=== PATIENT | male | born 1950 | race African-American/Black ===

== ENCOUNTER 2017-04-14 19:12 | Emergency (ER) | payer OTHER ==
[~2017-04-14] VITALS: Ht 172.7 cm; Wt 49.9 kg
[2017-04-14 19:17] VITALS: BP 128/99
== END 2017-04-14 19:30 | disposition left against medical advice (07) ==
LOC: ER 19:12
DX: F10.10 Alcohol abuse, uncomplicated (principal); Z53.21 Procedure and treatment not carried out due to patient leaving prior to being seen by health care provider

== ENCOUNTER 2021-02-20 19:39 | Inpatient (IN) | payer OTHER, MEDICAID ==
[~2021-02-20] VITALS: Ht 188 cm; Wt 102.1 kg
[2021-02-20] MEDS ORDERED: LORazepam 2MG/ML-1ML VIAL IV ONE (20:00)
[2021-02-20 20:42] LABS: Hemoglobin 15.4 g/dL (13.5-17.5); White Blood Cell 4.4 10^3/uL (4.4-10.8)
[2021-02-20 20:44] LABS: Hematocrit 45.9 % (41.0-53.0); Mean Corpuscular Hemoglobin 34.2 pg (28.0-32.0); Mean Corpuscular Hgb Conc. 33.4 g/dL (32.0-36.0); Mean Corpuscular Volume 102.2 fL (80.0-100.0); Red Blood Cells 4.49 10^6/uL (4.5-5.90)
[2021-02-20 20:47] LABS: Basophils % (manual) 0 (0.0-2.0); Blast Cells 0; Metamyelocytes % 0; Myelocytes % 0; Promyelocytes % 0; Reactive Lymphocytes 0
[2021-02-20 21:08] LABS: Albumin 3.2 g/dL (3.4-5.0); Calcium 8.4 mg/dL (8.5-10.1); Potassium 3.6 mmol/L (3.5-5.1)
[2021-02-20 21:11] LABS: Bilirubin, Total 0.2 mg/dL (0.2-1.0); Total Protein 7.4 g/dL (6.4-8.2)
[2021-02-20 21:16] LABS: Band Neutrophils % (manual) 1; Eosinophils % (manual) 2 (0-7); Lymphocytes % (manual) 61 (10.0-50.0); Monocytes % (manual) 9 (0-12)
[2021-02-20] MEDS ORDERED: SODIUM CHLORIDE 0.9% 1,000 ML IV ONE (22:00)
[2021-02-20] MEDS ORDERED: ONDANSETRON HCL 4 MG/2 ML VIAL IV PRN (22:00)
[2021-02-20] MEDS ORDERED: LORazepam 2MG/ML-1ML VIAL IV PRN (22:00)
[2021-02-20] MEDS ORDERED: KETOROLAC TROMETH 30 MG/ML 1ML VIAL IV ONE (22:15)
[2021-02-20] MEDS: GABAPENTIN 300 MG CAP PO SCH (22:30)
[2021-02-20] MEDS: ATORVASTATIN 20 MG TAB PO SCH (22:30)
[2021-02-21] VITALS (8 sets, daily range): BP systolic 104–188; BP diastolic 61–80
[2021-02-21] MEDS ORDERED: IBUPROFEN 600 MG TAB PO ONE (05:45)
[2021-02-21] MEDS: GABAPENTIN 300 MG CAP PO SCH ×3 (06:40→20:49)
[2021-02-21] MEDS: PANTOPRAZOLE 40 MG TAB PO SCH (09:13)
[2021-02-21] MEDS: ALLOPURINOL 300 MG TAB PO SCH (09:14)
[2021-02-21] MEDS: ATENOLOL 50 MG TAB PO SCH (09:17)
[2021-02-21 09:26] LABS: Basophils # (auto) 0 10 ^3/uL (0-0.2); Basophils % (auto) 0.6 % (0.0-2.0); Eosinophils # (auto) 0 10 ^3/uL (0-0.8); Eosinophils % (auto) 0.4 % (0.0-7.0); Hematocrit 42.9 % (41.0-53.0); Hemoglobin 14.5 g/dL (13.5-17.5); Lymphocytes % (auto) 46.2 % (10.0-50.0); Mean Corpuscular Hemoglobin 34.2 pg (28.0-32.0); Mean Corpuscular Hgb Conc. 33.7 g/dL (32.0-36.0); Mean Corpuscular Volume 101.3 fL (80.0-100.0); Monocytes # (auto) 0.5 10 ^3/uL (0-1.3); Monocytes % (auto) 10.7 % (0.0-12.0); Neutrophils # (auto) 1.8 10 ^3/uL (1.6-8.6); Neutrophils % (auto) 42.1 % (37.0-80.0); Nucleated Red Blood Cells % 0.2 %; Red Blood Cells 4.24 10^6/uL (4.5-5.90); Red Cell Distribution Width 21.2 % (11.8-14.3); White Blood Cell 4.2 10^3/uL (4.4-10.8)
[2021-02-21 09:45] LABS: BUN/Creatinine Ratio 13.2; Calcium 8.3 mg/dL (8.5-10.1)
[2021-02-21] MEDS ORDERED: FOLIC ACID 1 MG, MAGNESIUM SULF SDV 50% 8 MEQ, THIAMINE INJ 100 MG in D5W 5% 1,000 ML INJ SCH (12:00)
[2021-02-21] MEDS ORDERED: chlordiazePOXIDE HCL 25 MG CAP PO PRN (12:00)
[2021-02-21] MEDS ORDERED: CETI10TA2 PO (12:36)
[2021-02-21] MEDS ORDERED: OXYC325T14 PO (12:36)
[2021-02-21] MEDS ORDERED: GABA300C10 PO (12:36)
[2021-02-21] MEDS ORDERED: FLUT0.05 NAS (12:38)
[2021-02-21] MEDS ORDERED: DIVA500T13 PO (12:38)
[2021-02-21] MEDS ORDERED: DOXY100C2 PO (12:38)
[2021-02-21] MEDS ORDERED: TRAZ100T3 PO (12:38)
[2021-02-21] MEDS ORDERED: IBUP800T27 PO (12:38)
[2021-02-21] MEDS: IBUPROFEN 600 MG TAB PO PRN ×2 (16:07→21:06)
[2021-02-21] MEDS ORDERED: TAMSULOSIN HYDROCHLORIDE 0.4 MG CAP PO SCH (18:00)
[2021-02-21] MEDS: ATORVASTATIN 20 MG TAB PO SCH (20:50)
[2021-02-21] MEDS ORDERED: TEMAZEPAM 15 MG CAP PO PRN (21:00)
[2021-02-22 00:50] VITALS: BP 109/65
[2021-02-22 05:00] VITALS: BP 100/62
[2021-02-22] MEDS: GABAPENTIN 300 MG CAP PO SCH (06:00)
[2021-02-22 08:00] VITALS: BP 103/60
[2021-02-22 08:50] VITALS: BP 103/60
[2021-02-22 09:00] VITALS: BP 103/60
[2021-02-22] MEDS: PANTOPRAZOLE 40 MG TAB PO SCH (09:38)
[2021-02-22] MEDS: ATENOLOL 50 MG TAB PO SCH (09:39)
[2021-02-22] MEDS: ALLOPURINOL 300 MG TAB PO SCH (09:40)
[2021-02-22] MEDS ORDERED: FOLIC ACID 1 MG TAB PO SCH (10:00)
[2021-02-22] MEDS ORDERED: THIAMINE HCL 100 MG TAB PO SCH (10:00)
[2021-02-22] MEDS ORDERED: MULTIPLE VITAMIN TAB PO SCH (10:00)
== END 2021-02-22 10:45 | disposition home or self-care (01) | DRG 100 ==
LOC: ER 19:39 → EDBD 19:39 → OVERFLOW 21:59 → WEST WING 02-21 03:35
PROVIDERS: ADMIT Nurse Practitioner; ATTEND Family Medicine
DX: G40.901 Epilepsy, unspecified, not intractable, with status epilepticus (principal); G92.9 Unspecified toxic encephalopathy; F10.129 Alcohol abuse with intoxication, unspecified; E86.0 Dehydration; E66.3 Overweight; G47.30 Sleep apnea, unspecified; G47.00 Insomnia, unspecified; Z20.822 Contact with and (suspected) exposure to COVID-19; I10 Essential (primary) hypertension; N40.0 Benign prostatic hyperplasia without lower urinary tract symptoms; Z88.1 Allergy status to other antibiotic agents; Z88.5 Allergy status to narcotic agent; Z85.51 Personal history of malignant neoplasm of bladder; Y90.8 Blood alcohol level of 240 mg/100 ml or more; Z79.899 Other long term (current) drug therapy; Z91.19 Patient's noncompliance with other medical treatment and regimen; Z82.49 Family history of ischemic heart disease and other diseases of the circulatory system
CPT/HCPCS: 36415; 70450; 71045; 80048; 80053; 80164; 80320; 84484; 85007; 85025; 85027; 87426; 93005; 96361; 96365; 96375; 99291; G0378; J1885; J7060

== ENCOUNTER 2024-06-21 08:51 | Inpatient (IN) | payer OTHER, MEDICAID ==
[~2024-06-21] VITALS: Ht 177.8 cm; Wt 121.0 kg
[~2024-06-21 08:51] MED LIST: CETI10TA2 PO; DIVA500T13 PO; DOXY100C4 PO; FLUT0.05 NAS; GABA-1250 PO; IBUP-1456 PO; OXYC325T14 PO; TRAZ-228 PO
--- NOTE | 2024-06-21 09:14 | ED.PDOC ---
HPI Comments 73Y M with PMHx DC and seizures presents to ED for chief complaint chest pain x1week. Pt states chest pain is left-sided and radiates to back region and left flank. Additional symptoms include nausea and vomiting. Pt denies SOB, diarrhea, and all urinary symptoms. Pt has tried taking Oxycodone but has not felt relief from the symptoms. Chief Complaint: Chest Pain Time Seen by MD: 08:55 Primary Care Provider: UNK Reviewed Notes: Nurses Notes, Medications, Allergies Allergies: Coded Allergies: Acetaminophen (Verified Allergy, Unknown, 04/14/17) Hydrocodone (Verified Allergy, Unknown, 04/14/17) Home Meds Reported Medications Fluticasone Propionate (Fluticasone Propionate) 0.05 % Cre, 50 MCG TAVON for 30 Days, MCG 02/21/21 Doxycycline Hyclate (Doxycycline Hyclate) 100 Mg Cap, 100 MG PO BID, MG 02/21/21 Divalproex Sodium (Divalproex Sodium) 500 Mg Tab, 500 MG PO BID for 30 Days, MG 02/21/21 Ibuprofen (Ibuprofen) 800 Mg Tab, 800 MG PO Q6HP, MG 02/21/21 Trazodone Hcl (Trazodone Hcl) 100 Mg Tab, 100 MG PO HS, MG 02/21/21 Gabapentin (Gabapentin) 300 Mg Cap, 300 MG PO TID for 30 Days, MG 02/21/21 Cetirizine Hcl (Kls Aller-Christopher) 10 Mg Tab, 1 TAB PO DAILY, #30 TAB 3 Refills 02/21/21 Oxycodone W/ Acetaminophen (Apap/Oxycodone) 1 Tab Tab, 1 TAB PO DAILYPRN, TAB 02/21/21 Information Source: Patient Mode of Arrival: Ambulatory Severity: Mild Timing: Weeks Duration: Since onset Location: Chest (L) Radiation: Back, Other (left flank) Quality: Other Onset: At Rest Cardiac Risk Factors: None PE Risk Factors: None History of: DC Modifying Factors: Nothing Associated Signs and Symptoms: N/V, Back Pain, Other Past Medical History PAST MEDICAL HISTORY: Cancer, DC, Seizures Surgical History: Denies all surgeries Family History Family History: Unobtainable Social History Smoker: Non-Smoker Alcohol: Denies ETOH Use Drugs: Denies Drug Use Lives In: Home Constitutional: denies: chills, diaphoresis, fatigue, fever, malaise, sweats, weakness, others EENTM: denies: blurred vision, double vision, ear bleeding, ear discharge, ear drainage, ear pain, ear ringing, eye pain, eye redness, hearing loss, mouth pain, mouth swelling, nasal discharge, nose bleeding, nose congestion, nose pain, photophobia, tearing, throat pain, throat swelling, voice changes, others Respiratory: denies: cough, hemoptysis, orthopnea, SOB at rest, shortness of breath, SOB with excertion, stridor, wheezing, others Cardiovascular: reports: chest pain; denies: dizzy spells, diaphoresis, Dyspnea on exertion, edema, irregular heart beat, left arm pain, lightheadedness, palpitations, PND, syncope, others Gastrointestinal: reports: nausea, vomiting; denies: abdomen distended, abdominal pain, blood streaked bowels, constipated, diarrhea, dysphagia, difficulty swallowing, hematemesis, melena, poor appetite, poor fluid intake, rectal bleeding, rectal pain, others Genitourinary: reports: flank pain (left); denies: burning, dysuria, frequency, hematuria, incontinence, penile discharge, penile sore, pain, testicle pain, testicle swelling, urgency, others Neurological: denies: dizziness, fainting, headache, left sided numbness, left sided weakness, numbness, paresthesia, pre-existing deficit, right sided numbness, right sided weakness, seizure, speech problems, tingling, tremors, weakness, others Musculoskeletal: reports: back pain; denies: gout, joint pain, joint swelling, muscle pain, muscle stiffness, neck pain, others Integumetry: denies: bruises, change in color, change in hair/nails, dryness, laceration, lesions, lumps, rash, wounds, others Allergic/Immunocompromised: denies: Difficulty Healing, Frequent Infections, Hives, Itching, others Hematologic/Lymphatic: denies: anemia, blood clots, easy bleeding, easy bruising, swollen glands, others Endocrine: denies: excessive hunger, excessive sweating, excessive thirst, excessive urination, flushing, intolerance to cold, intolerance to heat, unexplained weight gain, unexplained weight loss, others Psychiatric: denies: anxiety, bipolar disorder, depression, hopeless, panic disorder, schizophrenia, sleepless, suicidal, others All Other Systems: Reviewed and Negative Physical Exam General Appearance: No Apparent Distress, Normal HEENT: Normal ENT Inspection, Pharynx Normal, TMs Normal Neck: Full Range of Motion, Non-Tender, Normal, Normal Inspection Respiratory: Chest Non-Tender, Lungs Clear, No Accessory Muscle Use, No Respiratory Distress, Normal Breath Sounds Cardiovascular: No Edema, No JVD, No Murmur, No Gallop, Normal Peripheral Pulses, Regular Rate/Rhythm Breast Exam: Deferred Gastrointestinal: No Organomegaly, Non Tender, No Pulsatile Mass, Normal Bowel Sounds, Soft Genitalia: Deferred Pelvic: Deferred Rectal: Deferred Extremities: No calf tenderness, Normal capillary refill, Normal inspection, Normal range of motion, Non-tender, No pedal edema Musculoskeletal : Apperance: Normal Neurologic: Alert, operating room coordinator II-XII nml as Tested, No Motor Deficits, Normal Affect, Normal Mood, No Sensory Deficits Cerebellar Function: NOT DONE Reflexes: NOT DONE Skin: Dry, Normal Color, Warm Lymphatic: No Adenopathy Was a procedure done? Was a procedure done?: No CP Differential Dx Differential Diagnosis: Electrolyte Disorder, DC, PAC's Differential Diagnosis: Chest Wall Pain, Gastritis, Myocardial Infarction X-Ray, Labs, Meds, VS Vital Signs Date Time Temp Pulse Resp B/P (MAP) Pulse Ox O2 Delivery O2 Flow Rate FiO2 06/21/24 09:24 97.7 91 18 111/85 (94) 94 97.7 06/21/24 09:24 91 18 94 Room Air* 0 21 06/21/24 08:59 86 06/21/24 08:51 98.0 84 18 137/79 (98) 97 Lab Test 06/21/24 09:49 06/21/24 09:00 Range/Units Troponin I High Sensitivity Pending 4 </=54 ng/L White Blood Count 7.4 4.4-10.8 10^3/uL Red Blood Count 5.06 4.5-5.90 10^6/uL Hemoglobin 15.9 13.5-17.5 g/dL Hematocrit 47.9 41.0-53.0 % Mean Corpuscular Volume 94.7 80.0-100.0 fL Mean Corpuscular Hemoglobin 31.4 28.0-32.0 pg Mean Corpuscular Hemoglobin Concent 33.2 32.0-36.0 g/dL Red Cell Distribution Width 15.0 H 11.8-14.3 % Platelet Count 182 140-450 10^3/uL Mean Platelet Volume 8.4 6.9-10.8 fL Neutrophils (%) (Auto) 52.7 37.0-80.0 % Lymphocytes (%) (Auto) 35.6 10.0-50.0 % Monocytes (%) (Auto) 9.7 0.0-12.0 % Eosinophils (%) (Auto) 0.9 0.0-7.0 % Basophils (%) (Auto) 1.1 0.0-2.0 % Neutrophils # (Auto) 3.9 1.6-8.6 10 ^3/uL Lymphocytes # (Auto) 2.6 0.4-5.4 10 ^3/uL Monocytes # (Auto) 0.7 0-1.3 10 ^3/uL Eosinophils # (Auto) 0.1 0-0.8 10 ^3/uL Basophils # (Auto) 0.1 0-0.2 10 ^3/uL Nucleated Red Blood Cells 0.2 % Urine Color Yellow Yellow Urine Clarity Clear Clear Urine pH 6.5 5.0-9.0 Urine Specific [place] 1.025 1.001-1.035 Urine Protein Trace H Negative Urine Ketones Trace Negative Urine Blood Negative Negative /uL Urine Nitrite Negative Negative Urine Bilirubin Negative Negative Urine Urobilinogen 6 Negative mg/dL Urine Leukocyte Esterase Trace Negative /uL Urine RBC <1 0 - 3 /hpf Urine Microscopic WBC 3 0-3 /HPF Urine Squamous Epithelial Cells Few <5 /hpf Urine Bacteria None seen None Seen /hpf Urine Mucus Few None Seen Urine Glucose Normal Normal mg/dL Sodium Level 141 136-145 mmol/L Potassium Level 3.6 3.5-5.1 mmol/L Chloride Level 104 98-107 mmol/L Carbon Dioxide Level 27 20-31 mmol/L Anion Gap 10 5-15 Blood Urea Nitrogen 10 9-23 mg/dL Creatinine 0.99 0.700-1.30 mg/dL Glomerular Filtration Rate Calc 81 >90 mL/min BUN/Creatinine Ratio 10.1 10.0-20.0 Serum Glucose 123 H 74-106 mg/dL Calcium Level 9.6 8.7-10.4 mg/dL [facility] [id number] [facility] [address] Ph: [phone] DIAGNOSTIC IMAGING Diagnostic Imaging Report : [id number] Signed PATIENT: BERONICA VILLELA ACCT: [id number] UNIT: [id number] : 1950 LOC: ER ROOM / BED: / AGE / SEX: 73 / M ADM STATUS: REG ER SERVICE 4 ORDERING PHYSICIAN: TAYLER PENNINGTON MD PROCEDURE(s): CXR2 - CHEST TWO VIEWS ROUTINE REASON: cp ORDER NUMBER(s): [id number], ACCESSION NUMBER(s): [id number] CHEST RADIOGRAPH Indication: cp Technique: Frontal and lateral view of the chest was obtained Comparison: none FINDINGS: Lines and Tubes: None Lungs: Clear Pleura: No effusion. No pneumothorax. Cardiomediastinal contours: Unremarkable Bones: Unremarkable IMPRESSION: No evidence of acute disease. ATED BY: GAGANDEEP COTE MD DICTATED DATE/TIME: 06/21/24913 SIGNED BY: GAGANDEEP COTE MD SIGNED DATE/TIME: 06/21/24913 CC: Time of 1ST Reevaluation: 09:25 Reevaluation 1ST: Unchanged Patient Education/Counseling: Diagnosis, Treatment Family Education/Counseling: No Family Present Departure 1 Departure Time of Disposition: 10:01 (Patient presented with chest pain that was concerning for possible STEMI, ACS, PE, Pneumonia, Muscle Strain, COPD, Dissection. Data: 1. I ordered and reviewed the result of at least 3 labs including a CBC, BMP, and Troponin. 2. I independently interpreted the following tests: EKG which shows sinus arrhythmia and Chest X-ray which shows benign chest.Risk:This patient has a high risk of morbidity due to further diagnostic testing or treatment and may suffer from an acute cardiac or respiratory disorder. Workup reveals concern for ACS and patient should be admitted for further workup and possible expert consultation. ) Impression: Primary Impression: Acute chest pain Additional Impression: Left flank pain Disposition: ADMITTED INPATIENT Admit to: Med Surg Condition: Serious Critical Care Note Critical Care Time?: Yes Critical care comment: Acute chest pain Authorized and Performed by: Tayler Pennington MD Total critical care time: Approximately 36 minutes Due to a high probability of clinically significant, life threatening deterioration, the patient required my highest level of preparedness to intervene emergently and I personally spent this critical care time directly and personally managing the patient. This critical care time included obtaining a history; examining the patient; pulse oximetry; ordering and review of studies; arranging urgent treatment with development of a management plan; evaluation of patient's response to treatment; frequent reassessment; and, discussions with other providers. This critical care time was performed to assess and manage the high probability of imminent, life-threatening deterioration that could result in multi-organ failure. It was exclusive of separately billable procedures and treating other patients and teaching time. Please see my other sections and the rest of the note for further information on patient assessment and treatment. Stability Stability form required: No Heart Score Heart Score: Heart Score Response (Comments) Value History Moderate Suspicious 1 EKG Repolarization Disturb 1 Age >65 2 Risk Factors 1 or 2 risk factors 1 Troponin 1-2 x's Normal limit 1 Total 6 I personally scribed for TAYLER PENNINGTON MD ([facility]) on 06/21/24 at 09:13. Electronically submitted by Neela Esqueda ([facility]). I personally scribed for TAYLER PENNINGTON MD ([email or web address]) on 06/21/24 at 09:34. Electronically submitted by Neela Esqueda ([facility]). TAYLER PENNINGTON MD Jun 21, 2024 09:13
[2024-06-21 09:15] LABS: Basophils # (auto) 0.1 10 ^3/uL (0-0.2); Basophils % (auto) 1.1 % (0.0-2.0); Eosinophils # (auto) 0.1 10 ^3/uL (0-0.8); Eosinophils % (auto) 0.9 % (0.0-7.0); Hematocrit 47.9 % (41.0-53.0); Hemoglobin 15.9 g/dL (13.5-17.5); Lymphocytes # (auto) 2.6 10 ^3/uL (0.4-5.4); Lymphocytes % (auto) 35.6 % (10.0-50.0); Mean Corpuscular Hemoglobin 31.4 pg (28.0-32.0); Mean Corpuscular Hgb Conc. 33.2 g/dL (32.0-36.0); Mean Corpuscular Volume 94.7 fL (80.0-100.0); Monocytes # (auto) 0.7 10 ^3/uL (0-1.3); Monocytes % (auto) 9.7 % (0.0-12.0); Neutrophils # (auto) 3.9 10 ^3/uL (1.6-8.6); Neutrophils % (auto) 52.7 % (37.0-80.0); Nucleated Red Blood Cells % 0.2 %; Platelet Count (auto) 182 10^3/uL (140-450); Red Blood Cells 5.06 10^6/uL (4.5-5.90); White Blood Cell 7.4 10^3/uL (4.4-10.8)
--- NOTE | 2024-06-21 09:17 | DVH ---
CHEST RADIOGRAPH Indication: cp Technique: Frontal and lateral view of the chest was obtained Comparison: none FINDINGS: Lines and Tubes: None Lungs: Clear Pleura: No effusion. No pneumothorax. Cardiomediastinal contours: Unremarkable Bones: Unremarkable IMPRESSION: No evidence of acute disease.
[2024-06-21 09:24] VITALS: PULSE 91; RESP 18; O2SAT 94
[2024-06-21 09:24] LABS: Chloride 104 mmol/L (98-107); Potassium 3.6 mmol/L (3.5-5.1); Sodium 141 mmol/L (136-145)
[2024-06-21 09:25] LABS: Anion Gap 10 (5-15); Carbon Dioxide 27 mmol/L (20-31)
[2024-06-21 09:26] LABS: Calcium 9.6 mg/dL (8.7-10.4)
[2024-06-21 09:30] LABS: BUN/Creatinine Ratio 10.1 (10.0-20.0); Blood Urea Nitrogen 10 mg/dL (9-23)
[2024-06-21 09:31] LABS: Glucose 123 mg/dL (74-106)
[2024-06-21 09:32] LABS: Urine Bacteria None Seen /hpf (None Seen)
[2024-06-21 09:40] LABS: Urine Blood Negative /uL (Negative); Urine Clarity Clear (Clear); Urine Color Yellow (Yellow); Urine Mucus FEW (None Seen); Urine Protein, UAD TRACE (Negative); Urine Specific Gravity 1.025 (1.001-1.035); Urine Squamous Epithelial Cell FEW /hpf (<5); Urine Urobilinogen 6 mg/dL (Negative); Urine WBC 3 /HPF (0-3); Urine pH 6.5 (5.0-9.0)
--- NOTE | 2024-06-21 10:30 | DVH ---
Exam: CT CT AB PEL WO CON-NO ORAL OR IV History: Left flank pain Comparison Study: None available at time of dictation. Technique: Multidetector spiral CT of the abdomen and pelvis was performed from lung bases to pubic s ymphysis. Imaging was performed without intravenous contrast. Coronal and sagittal multiplanar refor mats were obtained from the axial data set by the technologist. Radiation Dose : 1. Abdomen/Pelvis: CTDIvol 24.08 mGy, DLP 1417.73 mGy*cm. Findings: Evaluation of vasculature and solid organs is limited due to lack of intravenous contrast use. Lung Bases: Lung bases are clear. Visualized portions of the heart and pericardium are unremarkable. Liver: The liver is normal in size. 1.3 cm low attenuating lesion in the right hepatic lobe 5 mm low attenuating region in the medial right hepatic lobe. Diffusely hypoattenuating liver parenchyma cons istent with hepatic steatosis. Gallbladder and Biliary Tree: The gallbladder is unremarkable. No intrahepatic or extrahepatic bilia ry ductal dilatation. Spleen: Unremarkable Pancreas: The pancreas is grossly unremarkable. Adrenal Glands: Unremarkable Kidneys: Kidneys are unremarkable without calculi or hydronephrosis. GI tract: The stomach is grossly normal in appearance. No evidence of small bowel wall thickening or abnormal dilatation to suggest bowel obstruction. Sigmoid diverticulosis without acute diverticuliti s. The appendix is normal in caliber. Peritoneum/mesentery/retroperitoneum. No evidence of free intraperitoneal air. No ascites. No evidenc e of suspicious lymphadenopathy. Abdominal Wall: Unremarkable. Vasculature: The visualized abdominal aorta is normal in size and caliber. Evaluation of abdominal a nd pelvic vessels is limited due to lack of intravenous contrast. Urinary Bladder: Grossly unremarkable for degree of distention. Pelvic Organs: Unremarkable Musculoskeletal: No aggressive focal bony lesions, acute fractures or dislocation. IMPRESSION: 1. No acute abdominal or pelvic findings. 2. Sigmoid diverticulosis without acute diverticulitis. 3. Hepatic steatosis. 4. Low attenuating hepatic lesions which are too small to characterize on this study. Outpatient abdo fantasma ultrasound may be performed.
[2024-06-21] MEDS ORDERED: NITROGLYCERIN 0.4 MG SL TAB SL PRN (11:00)
--- NOTE | 2024-06-21 11:03 | DVHHP2 ---
History of Present Illness Reason for Visit: Chest pain, left flank pain History of Present Illness Inderjit Rincon is a 73-year-old male with past medial history of seizures due to H/O ETOH abuse, who comes into the hospital for chest pain and left flank pain. Patient states the pain started about a week ago. It has continued to worsen causing him to come to the hospital. He states the chest pain is associated with shortness of breath that is worse with exertion. 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 Past Surgical History: Other (left hand finger) Family History: None Smoke: No ALCOHOL: rare Drugs: None Lives: with Family Domestic Violence: Neg Review of Systems Constitutional: Yes: Weakness, Malaise; No: Fever, Chills, Sweats, Other Eyes: No: Pain, Vision change, Conjunctivae inflammation, Eyelid inflammation, Other, Redness ENT: No: Ear pain, Ear discharge, Nose pain, Nose discharge, Nose congestion, Mouth pain, Mouth swelling, Throat pain, Throat swelling, Other Respiratory: Shortness of breath, SOB with excertion; No: Cough, Dry, Wheezing, Hemoptysis, Pleuritic Pain, Sputum, Wheezing, Other Cardiovascular: Chest Pain; No: Palpitations, Orthopnea, Paroxysmal Noc. Dyspnea, Edema, Lt Headedness, Other Gastrointestinal: No: Nausea, Vomiting, Abdominal Pain, Diarrhea, Constipation, Melena, Hematochezia, Other Genitourinary: No Dysuria, No Frequency, No Incontinence, No Hematuria, No Retention, No Other Musculoskeletal: back pain (Left flank pain); No: other, neck pain, shoulder pain, arm pain, hand pain, leg pain, foot pain Skin: No: Rash, Lesions, Jaundice, Bruising, Other Neurological: No: Weakness, Numbness, Incoordination, Change in speech, Confu haseeb, Seizures, Other Allergies: Coded Allergies: NO KNOWN ALLERGIES (Unverified , 06/21/24) Exam Vital Signs Vital Signs Date Time Temp Pulse Resp B/P (MAP) Pulse Ox O2 Delivery O2 Flow Rate FiO2 06/21/24 09:24 97.7 91 18 111/85 (94) 94 97.7 06/21/24 09:24 Room Air* 0 21 General Appearance: Alert, Oriented X3, Cooperative, mild distress HEENT: Atraumatic, PERRLA Respiratory: Clear to auscultation, Normal air movement Cardiovascular: Regular rate, Normal S1, Normal S2, No murmurs Abdominal: Normal bowel sounds, Soft, No tenderness, No hepatospenomegaly Extremities: No clubbing, No cyanosis, No edema, Normal pulses, No tenderness/swelling Skin: No rashes, No breakdown, No significant lesion Neuro: Normal gait, Normal speech, Strength at 5/5 X4 ext Psych/Mental Status: Mental status NL, Mood NL Labs/Xrays Labs Test 06/21/24 09:49 06/21/24 09:00 Range/Units White Blood Count 7.4 4.4-10.8 10^3/uL Red Blood Count 5.06 4.5-5.90 10^6/uL Hemoglobin 15.9 13.5-17.5 g/dL Hematocrit 47.9 41.0-53.0 % Mean Corpuscular Volume 94.7 80.0-100.0 fL Mean Corpuscular Hemoglobin 31.4 28.0-32.0 pg Mean Corpuscular Hemoglobin Concent 33.2 32.0-36.0 g/dL Red Cell Distribution Width 15.0 H 11.8-14.3 % Platelet Count 182 140-450 10^3/uL Mean Platelet Volume 8.4 6.9-10.8 fL Neutrophils (%) (Auto) 52.7 37.0-80.0 % Lymphocytes (%) (Auto) 35.6 10.0-50.0 % Monocytes (%) (Auto) 9.7 0.0-12.0 % Eosinophils (%) (Auto) 0.9 0.0-7.0 % Basophils (%) (Auto) 1.1 0.0-2.0 % Neutrophils # (Auto) 3.9 1.6-8.6 10 ^3/uL Lymphocytes # (Auto) 2.6 0.4-5.4 10 ^3/uL Monocytes # (Auto) 0.7 0-1.3 10 ^3/uL Eosinophils # (Auto) 0.1 0-0.8 10 ^3/uL Basophils # (Auto) 0.1 0-0.2 10 ^3/uL Nucleated Red Blood Cells 0.2 % Urine Color Yellow Yellow Urine Clarity Clear Clear Urine pH 6.5 5.0-9.0 Urine Specific [place] 1.025 1.001-1.035 Urine Protein Trace H Negative Urine Ketones Trace Negative Urine Blood Negative Negative /uL Urine Nitrite Negative Negative Urine Bilirubin Negative Negative Urine Urobilinogen 6 Negative mg/dL Urine Leukocyte Esterase Trace Negative /uL Urine RBC <1 0 - 3 /hpf Urine Microscopic WBC 3 0-3 /HPF Urine Squamous Epithelial Cells Few <5 /hpf Urine Bacteria None seen None Seen /hpf Urine Mucus Few None Seen Urine Glucose Normal Normal mg/dL Sodium Level 141 136-145 mmol/L Potassium Level 3.6 3.5-5.1 mmol/L Chloride Level 104 98-107 mmol/L Carbon Dioxide Level 27 20-31 mmol/L Anion Gap 10 5-15 Blood Urea Nitrogen 10 9-23 mg/dL Creatinine 0.99 0.700-1.30 mg/dL Glomerular Filtration Rate Calc 81 >90 mL/min BUN/Creatinine Ratio 10.1 10.0-20.0 Serum Glucose 123 H 74-106 mg/dL Calcium Level 9.6 8.7-10.4 mg/dL CHEST RADIOGRAPH FINDINGS: Lines and Tubes: None Lungs: Clear Pleura: No effusion. No pneumothorax. Cardiomediastinal contours: Unremarkable Bones: Unremarkable IMPRESSION: No evidence of acute disease. Exam: CT CT AB PEL WO CON-NO ORAL OR IV Findings: Evaluation of vasculature and solid organs is limited due to lack of intravenous contrast use. Lung Bases: Lung bases are clear. Visualized portions of the heart and pericardium are unremarkable. Liver: The liver is normal in size. 1.3 cm low attenuating lesion in the right hepatic lobe 5 mm low attenuating region in the medial right hepatic lobe. Diffusely hypoattenuating liver parenchyma consistent with hepatic steatosis. Gallbladder and Biliary Tree: The gallbladder is unremarkable. No intrahepatic or extrahepatic biliary ductal dilatation. Spleen: Unremarkable Pancreas: The pancreas is grossly unremarkable. Adrenal Glands: Unremarkable Kidneys: Kidneys are unremarkable without calculi or hydronephrosis. GI tract: The stomach is grossly normal in appearance. No evidence of small bowel wall thickening or abnormal dilatation to suggest bowel obstruction. Sigmoid diverticulosis without acute diverticulitis. The appendix is normal in caliber. Peritoneum/mesentery/retroperitoneum. No evidence of free intraperitoneal air. No ascites. No evidence of suspicious lymphadenopathy. Abdominal Wall: Unremarkable. Vasculature: The visualized abdominal aorta is normal in size and caliber. Evaluation of abdominal and pelvic vessels is limited due to lack of intravenous contrast. Urinary Bladder: Grossly unremarkable for degree of distention. Pelvic Organs: Unremarkable Musculoskeletal: No aggressive focal bony lesions, acute fractures or dislocation. IMPRESSION: 1. No acute abdominal or pelvic findings. 2. Sigmoid diverticulosis without acute diverticulitis. 3. Hepatic steatosis. 4. Low attenuating hepatic lesions which are too small to characterize on this study. Outpatient abdominal ultrasound may be performed. 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 Procedure Category Date Status Time Ct Ab Pel Wo Con-No CT 06/21/24 Resulted Oral Or Iv 10:06 Admit ADMIT 06/21/24 Transmitted 10:52 Code Status CODE 06/21/24 Transmitted 10:52 2 Gm Sodium Diet DIET 06/21/24 Transmitted Lunch Sodium Chloride Lock PHA 06/21/24 Logged (Saline Lock Ns) 14:00 Hydrocodone-Acet PHA 06/21/24 Logged 5/325mg Tab ([place] 11:00 Ondansetron Hcl PHA 06/21/24 Logged (Zofran) 11:00 Docusate Sodium PHA 06/21/24 Transmitted Capsule (Colace 11:00 Complete Blood Count LAB 06/22/24 Verified 04:00 Comprehensive LAB 06/22/24 Verified Metabolic Panel 04:00 Echo 2d Mode Cardiac US 06/21/24 Logged DOP 10:52 Condition: Serious MIGUEL ÁNGEL 06/21/24 In Process 10:52 Acetaminophen Tablet PHA 06/21/24 Transmitted (Tylenol Tablet) 11:00 Nitroglycerin PHA 06/21/24 Transmitted Sublingual (Ntrostat 11:00 Morphine Sulfate PHA 06/21/24 Transmitted Injection 11:00 Stat Ekg For Chest MIGUEL ÁNGEL 06/21/24 In Process Pain 10:52 Notify Of Changes MIGUEL ÁNGEL 06/21/24 In Process From Base 10:52 Air And Water Tester For MIGUEL ÁNGEL 06/21/24 In Process 24 Hours 10:52 Emergency Dysrhythmia MIGUEL ÁNGEL 06/21/24 In Process Protocol 10:52 Rhythm Strips Once MIGUEL ÁNGEL 06/21/24 In Process Every Shift 10:52 Oxygen By Nasal RT 06/21/24 Transmitted Cannula 10:52 * Cardiology Consult CONS 06/21/24 Transmitted 10:55 Date of Service: Jun 21, 2024 Billing Provider: RADHA STALLINGS Common Visit Codes: [id number] INP/OBS CARE (MOD) RADHA STALLINGS Jun 21, 2024 11:03
[2024-06-21] MEDS: ASPirin 81 mg TAB PO ONE (12:02)
[2024-06-21 13:12] LABS: Alanine Aminotransferase 14 U/L (7-40); Albumin 4.4 g/dL (3.2-4.8); Alkaline Phosphatase 65 U/L (46-116); Anion Gap 9 (5-15); Aspartate Aminotransferase 20 U/L (13-40); BUN/Creatinine Ratio 10.8 (10.0-20.0); Bilirubin, Total 0.6 mg/dL (0.2-1.0); Blood Urea Nitrogen 10 mg/dL (9-23); Calcium 9.7 mg/dL (8.7-10.4); Carbon Dioxide 29 mmol/L (20-31); Chloride 103 mmol/L (98-107); Glucose 100 mg/dL (74-106); Potassium 3.6 mmol/L (3.5-5.1); Sodium 141 mmol/L (136-145)
[2024-06-21 13:13] LABS: Total Protein 7.3 g/dL (5.7-8.2)
--- NOTE | 2024-06-21 13:30 | DVHINCON2 ---
JESUS CABA [facility] 06/21/24 1330: Date Seen: Jun 21, 2024 Referring Physician CALLY Stewart Reason for Consultation Chest pain History of Present Illness This is a 73-year-old male patient who presents to emergency room with chief complaint of chest pain, shortness of breath, and left flank pain. The patient reports that all symptoms started approximately two weeks ago. He now comes to the emergency room for further evaluation. He describes the chest pain as unprovoked, constant, sharp in nature, left-sided with radiation down his left arm. He also states that he is having shortness of breath. Initial twelve lead electrocardiogram reveals sinus rhythm with PVCs. Initial and serial troponin levels have been negative. Significant past medical history includes dyslipidemia, seizure disorder, previous alcohol abuse, obesity, bladder cancer s/p multiple surgeries and chemotherapy and is now in remission. He denies any previous cardiac workup in the past. Past Medical History Past medical history reviewed. No other significant than mentioned above. Past Surgical History Bladder surgery x4 Family History: Hypertension G8 MOTHER Ischemic heart disease G8 MOTHER G8 FATHER Family History Family history reviewed. Social History Patient admits to previous alcohol abuse, now denies any alcohol intake Denies any tobacco use Denies any illicit drug use Allergies: Coded Allergies: NO KNOWN ALLERGIES (Unverified , 06/21/24) Home Meds Reported Medications Levetiracetam (Levetiracetam) 1,000 Mg Tab, 1 TAB PO BID 06/21/24 Fluticasone Propionate (Fluticasone Propionate) 0.05 % Cre, 50 MCG TAVON for 30 Days, MCG 02/21/21 Trazodone Hcl (Trazodone Hcl) 100 Mg Tab, 100 MG PO HS, MG 02/21/21 Gabapentin (Gabapentin) 300 Mg Cap, 300 MG PO TID for 30 Days, MG 02/21/21 Discontinued Reported Medications Doxycycline Hyclate (Doxycycline Hyclate) 100 Mg Cap, 100 MG PO BID, MG 02/21/21 Divalproex Sodium (Divalproex Sodium) 500 Mg Tab, 500 MG PO BID for 30 Days, MG 02/21/21 Ibuprofen (Ibuprofen) 800 Mg Tab, 800 MG PO Q6HP, MG 02/21/21 Cetirizine Hcl (Kls Aller-Christopher) 10 Mg Tab, 1 TAB PO DAILY, #30 TAB 3 Refills 02/21/21 Oxycodone W/ Acetaminophen (Apap/Oxycodone) 1 Tab Tab, 1 TAB PO DAILYPRN, TAB 02/21/21 Home Meds Home medications reviewed. Current Medications Current Medications Medications (Trade) Dose Ordered Sig/Wilda Route PRN Reason Start Time Stop Time Status Last Admin Sodium Chloride (Saline Lock Ns) 10 ml Q8HR IV 06/21/24 14:00 Acetaminophen/ Hydrocodone Bitart ([place] 5/325MG Tab) 1 tab Q4HP PRN PO MODERATE PAIN (4-6 PAIN SCALE) 06/21/24 11:00 UNV Ondansetron HCl (Zofran) 4 mg Q4HP PRN IV NAUSEA / VOMITING 06/21/24 11:00 Docusate Sodium (Colace Capsule) 100 mg BIDPRN PRN PO FOR CONSTIPATION 06/21/24 11:00 Acetaminophen (Tylenol Tablet) 650 mg Q6HP PRN PO PAIN SCALE 1-3 OR TEMP>100.4 06/21/24 11:00 UNV Nitroglycerin (Ntrostat Sublingual) 0.4 mg Q5MINP PRN SL FOR CHEST PAIN 06/21/24 11:00 Morphine Sulfate 2 mg Q30M PRN IV FOR CHEST PAIN 06/21/24 11:00 UNV Aspirin 81 mg DAILY PO 06/22/24 10:00 Atorvastatin Calcium (Lipitor) 20 mg HS PO 06/21/24 22:00 Review of Systems Constitutional: No symptom reported Ears, Nose, & Throat: No symptom reported Eyes: No symptom reported Neurological: No symptoms reported Pulmonary/Respiratory: No symptoms reported Cardiovascular: Chest pain Gastrointestinal: No symptom reported Genitourinary: Left flank pain Musculoskeletal: No symptom reported Skin: No symptom reported Psychiatric: No symptom reported Endocrine: No symptom reported Hematologic/Lymphatic: No symptom reported Vital Signs Vital Signs Date Time Temp Pulse Resp B/P (MAP) Pulse Ox O2 Delivery O2 Flow Rate FiO2 06/21/24 13:25 98.2 73 18 125/71 (89) 96 98.2 06/21/24 09:24 Room Air* 0 21 Physical Exam General Appearance: Cooperative. Obese Pulmonary/Respiratory: Clear, bilateral breaths sounds. Cardiovascular/Chest: Regular rate and rhythm. Peripheral Pulses: 2+ Radial (R). 2+ Radial (L). Abdominal Exam: Normal bowel sounds. Ankle Exam: Negative ankle edema Lower extremities: Negative lower extremity edema Neuro/Mental Status: A/OX4, coherent. Thoughts/Psych: Normal thought pattern. Appropriate mood and affect. Good judgment and insight. Appearance: No acute distress. Skin Exam: Normal inspection. Normal color. Warm and dry. Labs/Diagnostic Data Labs Test 06/21/24 11:55 06/21/24 09:00 Range/Units Sodium Level 141 136-145 mmol/L Potassium Level 3.6 3.5-5.1 mmol/L Chloride Level 103 98-107 mmol/L Carbon Dioxide Level 29 20-31 mmol/L Anion Gap 9 5-15 Blood Urea Nitrogen 10 9-23 mg/dL Creatinine 0.93 0.700-1.30 mg/dL Glomerular Filtration Rate Calc 88 >90 mL/min BUN/Creatinine Ratio 10.8 10.0-20.0 Serum Glucose 100 74-106 mg/dL Calcium Level 9.7 8.7-10.4 mg/dL Total Bilirubin 0.6 0.2-1.0 mg/dL Aspartate Amino Transferase (AST) 20 13-40 U/L Alanine Aminotransferase (ALT) 14 7-40 U/L Alkaline Phosphatase 65 46-116 U/L Troponin I High Sensitivity 3 L </=54 ng/L Total Protein 7.3 5.7-8.2 g/dL Albumin 4.4 3.2-4.8 g/dL White Blood Count 7.4 4.4-10.8 10^3/uL Red Blood Count 5.06 4.5-5.90 10^6/uL Hemoglobin 15.9 13.5-17.5 g/dL Hematocrit 47.9 41.0-53.0 % Mean Corpuscular Volume 94.7 80.0-100.0 fL Mean Corpuscular Hemoglobin 31.4 28.0-32.0 pg Mean Corpuscular Hemoglobin Concent 33.2 32.0-36.0 g/dL Red Cell Distribution Width 15.0 H 11.8-14.3 % Platelet Count 182 140-450 10^3/uL Mean Platelet Volume 8.4 6.9-10.8 fL Neutrophils (%) (Auto) 52.7 37.0-80.0 % Lymphocytes (%) (Auto) 35.6 10.0-50.0 % Monocytes (%) (Auto) 9.7 0.0-12.0 % Eosinophils (%) (Auto) 0.9 0.0-7.0 % Basophils (%) (Auto) 1.1 0.0-2.0 % Neutrophils # (Auto) 3.9 1.6-8.6 10 ^3/uL Lymphocytes # (Auto) 2.6 0.4-5.4 10 ^3/uL Monocytes # (Auto) 0.7 0-1.3 10 ^3/uL Eosinophils # (Auto) 0.1 0-0.8 10 ^3/uL Basophils # (Auto) 0.1 0-0.2 10 ^3/uL Nucleated Red Blood Cells 0.2 % Urine Color Yellow Yellow Urine Clarity Clear Clear Urine pH 6.5 5.0-9.0 Urine Specific [place] 1.025 1.001-1.035 Urine Protein Trace H Negative Urine Ketones Trace Negative Urine Blood Negative Negative /uL Urine Nitrite Negative Negative Urine Bilirubin Negative Negative Urine Urobilinogen 6 Negative mg/dL Urine Leukocyte Esterase Trace Negative /uL Urine RBC <1 0 - 3 /hpf Urine Microscopic WBC 3 0-3 /HPF Urine Squamous Epithelial Cells Few <5 /hpf Urine Bacteria None seen None Seen /hpf Urine Mucus Few None Seen Urine Glucose Normal Normal mg/dL Assessment Chest pain, rule out coronary ischemia Dyslipidemia Seizure disorder History of bladder cancer status post surgeries and chemotherapy Previous alcohol abuse Obesity Plan/Recommendation We will continue with following plan/recommendations (Dr. Cochran): * Transthoracic echocardiogram to evaluate cardiac function * Lipid-lowering agent * Close Cardiac surveillance * Nuclear stress test Patient seen and examined in the emergency room lobby with . Given the patient's clinical presentation and comorbidities, we will offer the patient a nuclear stress test. Plan discussed with the patient and he is agreeable. We will schedule the patient at soonest availability. Thank you for allowing us to care for this patient. Please call with any questions or concerns. Critical care time spent: 43 minutes This medical document was created using an electronic medical record system with voice recognition software and computerized dictation system. Although this document has been carefully reviewed, there might still be some phonetic and typographical errors. Occasional wrong-word or ``sound-alike substitutions may have occurred due to the inherent limitations of voice recognition software. These areas are purely typographical due to imperfections of the software programs and do not reflect any compromise in the patient's medical care. Please read the chart carefully and recognize, using context, where these substitutions have occurred. Plan discussed with: Patient NYHA Physical activity limitations: NA Date of Service: Jun 21, 2024 Billing Provider: JESUS CABA Cardiology Common Codes: [id number] INP/OBS CARE (High) Cardiology Consultation Codes: [id number] CONSULT <45MIN OC COCHRAN MD 06/21/24 1905: Family History: Hypertension G8 MOTHER Ischemic heart disease G8 MOTHER G8 FATHER Allergies: Coded Allergies: NO KNOWN ALLERGIES (Unverified , 06/21/24) Home Meds Reported Medications Levetiracetam (Levetiracetam) 1,000 Mg Tab, 1 TAB PO BID 06/21/24 Fluticasone Propionate (Fluticasone Propionate) 0.05 % Cre, 50 MCG TAVON for 30 Days, MCG 02/21/21 Trazodone Hcl (Trazodone Hcl) 100 Mg Tab, 100 MG PO HS, MG 02/21/21 Gabapentin (Gabapentin) 300 Mg Cap, 300 MG PO TID for 30 Days, MG 02/21/21 Discontinued Reported Medications Doxycycline Hyclate (Doxycycline Hyclate) 100 Mg Cap, 100 MG PO BID, MG 02/21/21 Divalproex Sodium (Divalproex Sodium) 500 Mg Tab, 500 MG PO BID for 30 Days, MG 02/21/21 Ibuprofen (Ibuprofen) 800 Mg Tab, 800 MG PO Q6HP, MG 02/21/21 Cetirizine Hcl (Kls Aller-Christopher) 10 Mg Tab, 1 TAB PO DAILY, #30 TAB 3 Refills 02/21/21 Oxycodone W/ Acetaminophen (Apap/Oxycodone) 1 Tab Tab, 1 TAB PO DAILYPRN, TAB 02/21/21 Plan/Recommendation pt points to LUQ abd and flank mostly. given risk factors, will do nuclear stress. however, GI workup should be considered. fu primary team Plan discussed with: Patient CABA,JESUS LAGUNAS Jun 21, 2024 13:30 OC COCHRAN MD Jun 21, 2024 19:05
[2024-06-21 13:58] LABS: Opiate Scree,Urine Neg (NEGATIVE)
[2024-06-21 13:59] LABS: Amphetamine Screen, Urine Neg (NEGATIVE); Barbiturate Scree,Urine Neg (NEGATIVE); Benzodiazephine Screen, Urine Neg (NEGATIVE); Cannabinoid Screen, Urine Neg (NEGATIVE); Cocaine Screen, Urine Neg (NEGATIVE); Phencyclidine Screen, Urine Neg (NEGATIVE)
[2024-06-21] MEDS: SODIUM CHLOR 0.9% PF (SALINE LOCK) 10ML VIAL/SYR IV SCH (14:00)
[2024-06-21] MEDS: HYDROcodone-ACET 5/325MG TAB PO PRN (15:24)
[2024-06-21] MEDS ORDERED: LEVE100020 PO (17:49)
--- NOTE | 2024-06-21 18:00 | ECG ---
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
[2024-06-21] MEDS: MORPHINE SULFATE INJ 2 MG/ml SYRG IV PRN (18:01)
[2024-06-21] MEDS: ONDANSETRON HCL 4 MG/2 ML VIAL IV PRN (18:01)
[2024-06-21 21:00] VITALS: BP 124/85; PULSE 74; RESP 18; TEMP 97.2; O2SAT 93
[2024-06-21 21:55] VITALS: BP 124/83; PULSE 74; RESP 18; TEMP 97.2; O2SAT 93
[2024-06-21] MEDS: ATORVASTATIN 20 MG TAB PO SCH (22:02)
[2024-06-21] MEDS: levETIRAcetam 500 MG TAB PO SCH (22:02)
[2024-06-21] MEDS: GABAPENTIN 300 MG CAP PO SCH (22:02)
[2024-06-21] MEDS: traZODone HCL 50 MG TAB PO SCH (22:03)
[2024-06-22] VITALS (8 sets, daily range): BP systolic 105–116; BP diastolic 60–68; PULSE 70–86; RESP 17–18; TEMP 97.2–97.8; O2SAT 94–97
[2024-06-22 07:19] LABS: Basophils # (auto) 0 10 ^3/uL (0-0.2); Basophils % (auto) 0.4 % (0.0-2.0); Eosinophils # (auto) 0 10 ^3/uL (0-0.8); Eosinophils % (auto) 0.6 % (0.0-7.0); Hematocrit 42.1 % (41.0-53.0); Hemoglobin 14.3 g/dL (13.5-17.5); Lymphocytes # (auto) 1.9 10 ^3/uL (0.4-5.4); Lymphocytes % (auto) 30.3 % (10.0-50.0); Mean Corpuscular Hemoglobin 32.3 pg (28.0-32.0); Mean Corpuscular Hgb Conc. 34.1 g/dL (32.0-36.0); Mean Corpuscular Volume 94.9 fL (80.0-100.0); Monocytes # (auto) 0.5 10 ^3/uL (0-1.3); Monocytes % (auto) 8.7 % (0.0-12.0); Neutrophils # (auto) 3.8 10 ^3/uL (1.6-8.6); Nucleated Red Blood Cells % 0.6 %; Platelet Count (auto) 160 10^3/uL (140-450); Red Blood Cells 4.43 10^6/uL (4.5-5.90); Red Cell Distribution Width 14.5 % (11.8-14.3); White Blood Cell 6.3 10^3/uL (4.4-10.8)
[2024-06-22 07:30] LABS: Alanine Aminotransferase 13 U/L (7-40); Albumin 3.9 g/dL (3.2-4.8); Alkaline Phosphatase 60 U/L (46-116); Anion Gap 7 (5-15); Aspartate Aminotransferase 16 U/L (13-40); BUN/Creatinine Ratio 10.9 (10.0-20.0); Blood Urea Nitrogen 10 mg/dL (9-23); Calcium 9.5 mg/dL (8.7-10.4); Carbon Dioxide 30 mmol/L (20-31); Chloride 102 mmol/L (98-107); Glucose 102 mg/dL (74-106); Potassium 3.9 mmol/L (3.5-5.1); Sodium 139 mmol/L (136-145)
[2024-06-22 07:31] LABS: Bilirubin, Total 0.8 mg/dL (0.2-1.0); Total Protein 6.6 g/dL (5.7-8.2)
[2024-06-22 07:42] LABS: Triglycerides 141 mg/dL (< 150)
[2024-06-22 07:43] LABS: LDL Cholesterol 135 mg/dL (< 100)
[2024-06-22 07:44] LABS: HDL Cholesterol 49 mg/dL (40-59)
[2024-06-22 07:45] LABS: Cholesterol 206 mg/dL (< 200)
[2024-06-22] MEDS: REGADENOSON 0.4 MG/5 ML SYRG IV ONE ×2 (09:40)
[2024-06-22] MEDS: ASPirin 81 mg TAB PO SCH (10:13)
--- NOTE | 2024-06-22 13:05 | DVHPN2 ---
Progress Note Date Seen: Jun 22, 2024 Medical Necessity Reason Pt with a Central, PICC or Fol: No Subjective Patient reports: Feels better Objective vital signs Vital Sign Date Time Temp Pulse Resp B/P (MAP) Pulse Ox O2 Delivery O2 Flow Rate FiO2 06/22/24 09:00 97.4 73 17 115/64 (81) 96 97.4 06/22/24 08:00 Nasal Cannula* 3 32 Total Intake and Output 06/21/24 06/21/24 06/22/24 15:00 23:00 07:00 Intake Total 200 ml Output Total 0 ml Balance 200 ml medications Current Medications Medications Dose Ordered Sig/Wilda Route Start Time Stop Time Status Last Admin Dose Admin Sodium Chloride 10 ml Q8HR IV 06/21/24 14:00 06/22/24 06:22 10 ML Acetaminophen/ Hydrocodone Bitart 1 tab Q4HP PRN PO 06/21/24 11:00 06/22/24 10:13 1 TAB Ondansetron HCl 4 mg Q4HP PRN IV 06/21/24 11:00 06/21/24 18:01 4 MG Docusate Sodium 100 mg BIDPRN PRN PO 06/21/24 11:00 Acetaminophen 650 mg Q6HP PRN PO 06/21/24 11:00 Nitroglycerin 0.4 mg Q5MINP PRN SL 06/21/24 11:00 Morphine Sulfate 2 mg Q30M PRN IV 06/21/24 11:00 06/21/24 18:01 2 MG Aspirin 81 mg DAILY PO 06/22/24 10:00 06/22/24 10:13 81 MG Atorvastatin Calcium 20 mg HS PO 06/21/24 22:00 06/21/24 22:02 20 MG Gabapentin 300 mg TID PO 06/21/24 22:00 06/22/24 06:21 300 MG Trazodone HCl 100 mg HS PO 06/21/24 22:00 06/21/24 22:03 100 MG Levetiracetam 1,000 mg BID PO 06/21/24 22:00 06/22/24 10:12 1,000 MG Examination: GENERAL:Abnormal, HEENT:Abnormal, LUNGS:Abnormal, CVS:Abnormal, ABDOMEN:Abnormal laboratory and microbiology Laboratory Tests 06/22/24 06:27 Test 06/22/24 06:27 Range/Units Serum Glucose 102 74-106 mg/dL Problem List/Assessment/Plan Problem List/Assessment/Plan ro ACS abd pain HTN obesity stress mpi shows no ischemai normal lvef will sign off no further cv workup indicated Plan discussed with: Patient Date of Service: Jun 22, 2024 Billing Provider: OC COCHRAN MD Common Visit Codes: NOT BILLABLE OC COCHRAN MD Jun 22, 2024 13:04
--- NOTE | 2024-06-22 14:06 | DVHPN2 ---
Reviewed: Care Plan, H&P, Labs, Medications, Previous Orders Changes from previous H/P or p: No Changes General: Per HPI Eyes: No Pain, No Vision change, No Conjunctivae inflammation, No Eyelid inflammation, No Other, No Redness ENT: No Ear pain, No Ear discharge, No Nose pain, No Nose discharge, No Nose congestion, No Mouth pain, No Mouth swelling, No Throat pain, No Throat swelling, No Other Cardiovascular: Chest Pain; No Palpitations, No Orthopnea, No Paroxysmal Noc. Dyspnea, No Edema, No Lt Headedness, No Other Respiratory: No Cough, No Dry; Shortness of breath, SOB with excertion; No Wheezing, No Hemoptysis, No Pleuritic Pain, No Sputum, No Other Gastrointestinal: No Nausea, No Vomiting, No Abdominal Pain, No Diarrhea, No Constipation, No Melena, No Hematochezia, No Other Genitourinary: No Dysuria, No Frequency, No Incontinence, No Hematuria, No Retention, No Other Musculoskeletal: No other, No neck pain, No shoulder pain, No arm pain; back pain (Left flank pain); No hand pain, No leg pain, No foot pain Skin: No Rash, No Lesions, No Jaundice, No Bruising, No Other Objective Vitals Vital Signs Date Time Temp Pulse Resp B/P (MAP) Pulse Ox O2 Delivery O2 Flow Rate FiO2 06/22/24 13:00 97.2 70 17 107/63 (78) 97 97.2 06/22/24 08:00 Nasal Cannula* 3 32 Intake/Output Intake and Output 06/22/24 07:00 Intake Total 200 ml Output Total 0 ml Balance 200 ml Intake Oral 200 ml Output Urine Total 0 ml Medications Current Medications Medications Dose Ordered Sig/Wilda Route Start Time Stop Time Status Last Admin Dose Admin Sodium Chloride 10 ml Q8HR IV 06/21/24 14:00 06/22/24 06:22 10 ML Ondansetron HCl 4 mg Q4HP PRN IV 06/21/24 11:00 06/21/24 18:01 4 MG Docusate Sodium 100 mg BIDPRN PRN PO 06/21/24 11:00 Acetaminophen 650 mg Q6HP PRN PO 06/21/24 11:00 Nitroglycerin 0.4 mg Q5MINP PRN SL 06/21/24 11:00 Morphine Sulfate 2 mg Q30M PRN IV 06/21/24 11:00 06/21/24 18:01 2 MG Aspirin 81 mg DAILY PO 06/22/24 10:00 06/22/24 10:13 81 MG Atorvastatin Calcium 20 mg HS PO 06/21/24 22:00 06/21/24 22:02 20 MG Gabapentin 300 mg TID PO 06/21/24 22:00 06/22/24 06:21 300 MG Trazodone HCl 100 mg HS PO 06/21/24 22:00 06/21/24 22:03 100 MG Levetiracetam 1,000 mg BID PO 06/21/24 22:00 06/22/24 10:12 1,000 MG Acetaminophen/ Hydrocodone Bitart 2 tab Q4HP PRN PO 06/22/24 14:15 UNV Morphine Sulfate 2 mg Q1HP PRN IV 06/22/24 14:15 UNV Laboratory Results Laboratory Tests 06/22/24 06:27 Chemistry Test 06/22/24 06:27 Albumin 3.9 g/dL (3.2-4.8) Calcium Level 9.5 mg/dL (8.7-10.4) Total Protein 6.6 g/dL (5.7-8.2) Lipid panel Test 06/22/24 06:27 Cholesterol Level 206 mg/dL (< 200) H HDL Cholesterol 49 mg/dL (40-59) Triglycerides Level 141 mg/dL (< 150) LFT Test 06/22/24 06:27 Alanine Aminotransferase (ALT) 13 U/L (7-40) Alkaline Phosphatase 60 U/L (46-116) Aspartate Amino Transferase (AST) 16 U/L (13-40) Total Bilirubin 0.8 mg/dL (0.2-1.0) HgA1c, TSH Test 06/22/24 06:27 Hemoglobin A1c 5.5 % A1C (<5.7) Urinalysis Test 06/21/24 09:00 Urine Color Yellow (Yellow) Urine Clarity Clear (Clear) Urine pH 6.5 (5.0-9.0) Urine Specific [place] 1.025 (1.001-1.035) Urine Protein Trace (Negative) H Urine Ketones Trace (Negative) Urine Blood Negative /uL (Negative) Urine Nitrite Negative (Negative) Urine Bilirubin Negative (Negative) Urine Urobilinogen 6 mg/dL (Negative) Urine Leukocyte Esterase Trace /uL (Negative) Urine RBC <1 /hpf (0 - 3) Urine Microscopic WBC 3 /HPF (0-3) Urine Squamous Epithelial Cells Few /hpf (<5) Urine Bacteria None seen /hpf (None Seen) Urine Mucus Few (None Seen) Urine Glucose Normal mg/dL (Normal) Assessment/Plan Assessment/Plan Inderjit Rincon is a 73-year-old male with past medial history of seizures due to H/O ETOH abuse, who comes into the hospital for chest pain and left flank pain. Patient states the pain started about a week ago. It has continued to worsen causing him to come to the hospital. He states the chest pain is associated with shortness of breath that is worse with exertion. Acute chest pain, R/O ACS, Left flank pain, Seizures history back pain obesity HTN 06/22/2024: pending stress test Plan discussed with: Patient, Spouse My Orders Orders - JERRICA SERRANO DO Procedure Category Date Status Time Hydrocodone-Acet PHA 06/22/24 Logged 5/325mg Tab ([place] 14:15 Morphine Sulfate PHA 06/22/24 Logged Injection 14:15 Pt Request For Service PT 06/22/24 Transmitted 14:03 Date of Service: Jun 22, 2024 Billing Provider: JERRICA SERRANO DO Common Visit Codes: [id number] INP/OBS CARE(HIGH) JERRICA SERRANO DO Jun 22, 2024 14:06
[2024-06-22] MEDS: MORPHINE SULFATE INJ 2 MG/ml SYRG IV PRN (14:21)
[2024-06-22] MEDS: ACETAMINOPHEN 325 MG TAB PO PRN (21:11)
[2024-06-23] VITALS (9 sets, daily range): BP systolic 90–109; BP diastolic 50–78; PULSE 62–73; RESP 16–20; TEMP 97.3–97.7; O2SAT 95–99
[2024-06-23] MEDS: HYDROcodone-ACET 5/325MG TAB PO PRN (00:36)
--- NOTE | 2024-06-23 14:19 | DVH ---
US OF THE left BREAST INDICATION: left breast lump TECHNIQUE: Targeted left breast ultrasound was performed. COMPARISON: Prior exam dated: None FINDINGS: Heterogeneous tissue versus edema is visualized in the left breast at 12 o'clock. No organized fluid collection. There are benign-appearing lymph nodes in the left axilla. IMPRESSION: Heterogeneous tissue versus edema is visualized in the left breast at 12 o'clock. Further evaluation with diagnostic mammogram on an outpatient basis is recommended with repeat left breast ultrasound. ACR Bi Rads Category:Category 0-"INCOMPLETE" (Needs Additional Imaging Evaluation))
--- NOTE | 2024-06-23 15:04 | DVHSR ---
APPROVED REPORT Exam: Nuclear Stress Test Indication: CAD BMI: 0 Medical History Medical History: HLD Stress Test Details Stress Test: Pharmacologic stress testing performed using 0.4 mg of regadenoson per 5 mL given IV ov er 10 seconds. HR Resting HR: 71 bpmMax Heart Rate (APMHR): 149.962296 bpm Max HR Achieved: 93 bpmTarget HR (85% APMHR): 126.777266 bpm % of APMHR: 62.42 Recovery HR: 80 bpm BP Resting BP: 111/69 mmHg Recovery BP: 114/64 mmHg ECG Resting ECG: Sinus Rhythm Clinical Reason for Termination: Completed protocol Nurse Comments Recieved pt. from [facility]. A/Ox4 on RA. Connected to sounding device operator, VS stable. PIV flushes well. Reviewed POC. Pt. verbalized understanding of procedure including risks and side ef fects, agrees for stress testing. Lexiscan stress test performed per protocol. [facility] tech administered Cardiolite. Pt. tolerated well . Pt. stable, no change on exam. VS returned to baseline. Transferred to [facility] via wheelchair w/ te ch. Stress ECG Conclusion lvef 69% normal perfusion no severe ischemia noted NM EXAM: Myocardial Perfusion REST/STRESS Imaging Protocol: Rest Tc-99m/Stress Tc-99m 1 day Resting Data Rest SPECT myocardial perfusion imaging was performed in supine position 60 minutes following the int ravenous injection of 15 mCi of Tc-99m Sestamibi. Time of rest injection: 0745 Time of rest imagin Administration Route: IV Administration Site: Right Arm Pharmacologic Stress Pharmacologic stress test was performed by injecting Regadenoson 0.4 mg IV push followed by the intra venous injection of 35 mCi of Tc-99m Sestamibi. Time of stress injection: 0945 Time of stress imagin Administration Route: IV Administration Site: Right Arm Gated Stress SPECT was performed 60 minutes after stress injection. The images were gated to evaluate regional wall motion and calculate left ventricular ejection fracti on. Stress only was performed in the Supine position. Nuclear Conclusion Nuclear Findings: negative for ischemia lvef 69% normal perfusion no severe ischemia noted
--- NOTE | 2024-06-23 15:52 | DVHSR ---
APPROVED REPORT EXAM: Two-dimensional and M-mode echocardiogram with Doppler and color Doppler. Blood Pressure: 105/60 mmHg INDICATION Chest Pain LV function RISK FACTORS Height: 70, Weight: 255 DIMENSIONS LVDd4.7 (3.8-5.7cm)LA (2D) (1.9-4.0cm)Aortic Root3.9 (2.0-3.7cm) LVDs3.5 (2.5-4.0cm)LA (MM) (1.9-4.0cm)Aortic Cusp Exc2.1 (1.5-2.0cm) EF (%) 50.0 (55-70%)Rt. Atrium (1.9-4.0cm)Asc. Aorta2.9 cm Mitral Valve MitralMitral Stenosis E wave0.61m/sMV Mean GR.mmHg A wave0.96m/sMV Peak GR.mmHg E/A ratio0.62D MVAcm2 DECEL [id number] 1/2 Timems Aortic Valve Aortic ValveAortic Stenosis V11.07m/Priyanka Mean GR.3mmHg V21.03m/Priyanka Peak GR.4mmHg LVOT Diameter1.9 (1.8-2.4cm)Doppler AVA2.94cm2 Pulmonic Valve V20.72m/s Other Information Technically limited study due to body habitus and patient position. Conclusion lvef 55% by visual estimate normal RV function, no severe valve abnormalities noted
[2024-06-23] MEDS: DOCUSATE SOD 100 MG CAP PO PRN (17:30)
[2024-06-24 01:00] VITALS: BP 102/66; PULSE 73; RESP 17; TEMP 97.4; O2SAT 96
[2024-06-24 05:00] VITALS: BP 117/52; PULSE 81; RESP 18; TEMP 97.4; O2SAT 95
[2024-06-24 08:00] VITALS: PULSE 68; PULSE 70; RESP 18; O2SAT 97
[2024-06-24 08:58] VITALS: BP 101/57; PULSE 70; RESP 18; TEMP 97.7; O2SAT 97
[2024-06-24 13:00] VITALS: BP 110/66; PULSE 64; RESP 18; TEMP 97.6; O2SAT 97
[2024-06-24] MEDS ORDERED: ASPI-325 PO (14:05)
[2024-06-24] MEDS ORDERED: DOCU-265 PO (14:05)
[2024-06-24] MEDS ORDERED: ATOR20TA50 PO (14:05)
--- NOTE | 2024-06-24 14:11 | DVHPN2 ---
Reviewed: Care Plan, H&P, Labs, Medications, Previous Orders Changes from previous H/P or p: No Changes General: Per HPI Eyes: No Pain, No Vision change, No Conjunctivae inflammation, No Eyelid inflammation, No Other, No Redness ENT: No Ear pain, No Ear discharge, No Nose pain, No Nose discharge, No Nose congestion, No Mouth pain, No Mouth swelling, No Throat pain, No Throat swelling, No Other Cardiovascular: Chest Pain; No Palpitations, No Orthopnea, No Paroxysmal Noc. Dyspnea, No Edema, No Lt Headedness, No Other Respiratory: No Cough, No Dry; Shortness of breath, SOB with excertion; No Wheezing, No Hemoptysis, No Pleuritic Pain, No Sputum, No Other Gastrointestinal: No Nausea, No Vomiting, No Abdominal Pain, No Diarrhea, No Constipation, No Melena, No Hematochezia, No Other Genitourinary: No Dysuria, No Frequency, No Incontinence, No Hematuria, No Retention, No Other Musculoskeletal: No other, No neck pain, No shoulder pain, No arm pain; back pain (Left flank pain); No hand pain, No leg pain, No foot pain Skin: No Rash, No Lesions, No Jaundice, No Bruising, No Other Objective Vitals Vital Signs Date Time Temp Pulse Resp B/P (MAP) Pulse Ox O2 Delivery O2 Flow Rate FiO2 06/24/24 13:34 64 18 110/66 06/24/24 13:00 97.6 97 97.6 06/24/24 08:00 Nasal Cannula* 3 32 Intake/Output Intake and Output 06/24/24 07:00 Intake Total 1180 ml Output Total 1800 ml Balance -620 ml Intake Oral 1180 ml Output Urine Total 1800 ml Medications Current Medications Medications Dose Ordered Sig/Wilda Route Start Time Stop Time Status Last Admin Dose Admin Sodium Chloride 10 ml Q8HR IV 06/21/24 14:00 06/24/24 13:34 10 ML Ondansetron HCl 4 mg Q4HP PRN IV 06/21/24 11:00 06/21/24 18:01 4 MG Docusate Sodium 100 mg BIDPRN PRN PO 06/21/24 11:00 06/23/24 17:30 100 MG Acetaminophen 650 mg Q6HP PRN PO 06/21/24 11:00 06/22/24 21:11 650 MG Nitroglycerin 0.4 mg Q5MINP PRN SL 06/21/24 11:00 Morphine Sulfate 2 mg Q30M PRN IV 06/21/24 11:00 06/21/24 18:01 2 MG Aspirin 81 mg DAILY PO 06/22/24 10:00 06/24/24 09:01 81 MG Atorvastatin Calcium 20 mg HS PO 06/21/24 22:00 06/23/24 21:17 20 MG Gabapentin 300 mg TID PO 06/21/24 22:00 06/24/24 13:33 300 MG Trazodone HCl 100 mg HS PO 06/21/24 22:00 06/23/24 21:17 100 MG Levetiracetam 1,000 mg BID PO 06/21/24 22:00 06/24/24 09:02 1,000 MG Acetaminophen/ Hydrocodone Bitart 2 tab Q4HP PRN PO 06/22/24 14:15 06/24/24 09:02 2 TAB Morphine Sulfate 2 mg Q1HP PRN IV 06/22/24 14:15 06/24/24 13:34 2 MG Laboratory Results Laboratory Tests 06/22/24 06:27 Urinalysis Test 06/21/24 09:00 Urine Color Yellow (Yellow) Urine Clarity Clear (Clear) Urine pH 6.5 (5.0-9.0) Urine Specific [place] 1.025 (1.001-1.035) Urine Protein Trace (Negative) H Urine Ketones Trace (Negative) Urine Blood Negative /uL (Negative) Urine Nitrite Negative (Negative) Urine Bilirubin Negative (Negative) Urine Urobilinogen 6 mg/dL (Negative) Urine Leukocyte Esterase Trace /uL (Negative) Urine RBC <1 /hpf (0 - 3) Urine Microscopic WBC 3 /HPF (0-3) Urine Squamous Epithelial Cells Few /hpf (<5) Urine Bacteria None seen /hpf (None Seen) Urine Mucus Few (None Seen) Urine Glucose Normal mg/dL (Normal) Labs and/or images reviewed: Labs reviewed by me, Image(s) reviewed by me Assessment/Plan Assessment/Plan Inderjit Rincon is a 73-year-old male with past medial history of seizures due to H/O ETOH abuse, who comes into the hospital for chest pain and left flank pain. Patient states the pain started about a week ago. It has continued to worsen causing him to come to the hospital. He states the chest pain is associated with shortness of breath that is worse with exertion. Acute chest pain, R/O ACS, Left flank pain, Seizures history back pain obesity HTN 06/22/2024: pending stress test 06/23/2024: stress done. pt complains about left breast lump. ordering breast US Plan discussed with: Patient My Orders Orders - JERRICA SERRANO DO Procedure Category Date Status Time Discharge DISCHARGE 06/24/24 Transmitted 14:05 Date of Service: Jun 23, 2024 Billing Provider: JERRICA SERRANO DO Common Visit Codes: [id number] INP/OBS CARE(HIGH) JERRICA SERRANO DO Jun 24, 2024 14:11
--- NOTE | 2024-06-24 14:12 | DVHDS2 ---
Discharge Summary Date of Admission Jun 21, 2024 at 10:52 Date of Discharge: Jun 24, 2024 Labs/Diagnostic Data: Laboratory Results Test 06/22/24 06:27 06/21/24 11:55 06/21/24 09:00 White Blood Count 6.3 10^3/uL (4.4-10.8) Red Blood Count 4.43 10^6/uL (4.5-5.90) Hemoglobin 14.3 g/dL (13.5-17.5) Hematocrit 42.1 % (41.0-53.0) Mean Corpuscular Volume 94.9 fL (80.0-100.0) Mean Corpuscular Hemoglobin 32.3 pg (28.0-32.0) Mean Corpuscular Hemoglobin Concent 34.1 g/dL (32.0-36.0) Red Cell Distribution Width 14.5 % (11.8-14.3) Platelet Count 160 10^3/uL (140-450) Mean Platelet Volume 8.1 fL (6.9-10.8) Neutrophils (%) (Auto) 60.0 % (37.0-80.0) Lymphocytes (%) (Auto) 30.3 % (10.0-50.0) Monocytes (%) (Auto) 8.7 % (0.0-12.0) Eosinophils (%) (Auto) 0.6 % (0.0-7.0) Basophils (%) (Auto) 0.4 % (0.0-2.0) Neutrophils # (Auto) 3.8 10 ^3/uL (1.6-8.6) Lymphocytes # (Auto) 1.9 10 ^3/uL (0.4-5.4) Monocytes # (Auto) 0.5 10 ^3/uL (0-1.3) Eosinophils # (Auto) 0 10 ^3/uL (0-0.8) Basophils # (Auto) 0 10 ^3/uL (0-0.2) Nucleated Red Blood Cells 0.6 % Sodium Level 139 mmol/L (136-145) Potassium Level 3.9 mmol/L (3.5-5.1) Chloride Level 102 mmol/L (98-107) Carbon Dioxide Level 30 mmol/L (20-31) Anion Gap 7 (5-15) Blood Urea Nitrogen 10 mg/dL (9-23) Creatinine 0.92 mg/dL (0.700-1.30) Glomerular Filtration Rate Calc 89 mL/min (>90) BUN/Creatinine Ratio 10.9 (10.0-20.0) Serum Glucose 102 mg/dL (74-106) Hemoglobin A1c 5.5 % A1C (<5.7) Calcium Level 9.5 mg/dL (8.7-10.4) Total Bilirubin 0.8 mg/dL (0.2-1.0) Aspartate Amino Transferase (AST) 16 U/L (13-40) Alanine Aminotransferase (ALT) 13 U/L (7-40) Alkaline Phosphatase 60 U/L (46-116) Total Protein 6.6 g/dL (5.7-8.2) Albumin 3.9 g/dL (3.2-4.8) Triglycerides Level 141 mg/dL (< 150) Cholesterol Level 206 mg/dL (< 200) LDL Cholesterol 135 mg/dL (< 100) HDL Cholesterol 49 mg/dL (40-59) Troponin I High Sensitivity 3 ng/L (</=54) Thyroid Stimulating Hormone (TSH) 3.74 uIU/mL (0.55-4.78) Urine Color Yellow (Yellow) Urine Clarity Clear (Clear) Urine pH 6.5 (5.0-9.0) Urine Specific [place] 1.025 (1.001-1.035) Urine Protein Trace (Negative) Urine Ketones Trace (Negative) Urine Blood Negative /uL (Negative) Urine Nitrite Negative (Negative) Urine Bilirubin Negative (Negative) Urine Urobilinogen 6 mg/dL (Negative) Urine Leukocyte Esterase Trace /uL (Negative) Urine RBC <1 /hpf (0 - 3) Urine Microscopic WBC 3 /HPF (0-3) Urine Squamous Epithelial Cells Few /hpf (<5) Urine Bacteria None seen /hpf (None Seen) Urine Mucus Few (None Seen) Urine Glucose Normal mg/dL (Normal) Urine Opiates Screen Neg (NEGATIVE) Urine Fentanyl Screen Neg (NEGATIVE) Urine Barbiturates Screen Neg (NEGATIVE) Urine Phencyclidine Screen Neg (NEGATIVE) Urine Amphetamines Screen Neg (NEGATIVE) Urine Benzodiazepines Screen Neg (NEGATIVE) Urine Cocaine Screen Neg (NEGATIVE) Urine Cannabinoids Screen Neg (NEGATIVE) Other Laboratory Tests 06/22/24 06:27 Brief Hx & Hospital Course: Inderjit Rincon is a 73-year-old male with past medial history of seizures due to H/O ETOH abuse, who comes into the hospital for chest pain and left flank pain. Patient states the pain started about a week ago. It has continued to worsen causing him to come to the hospital. He states the chest pain is associated with shortness of breath that is worse with exertion. Acute chest pain, R/O ACS, Left flank pain, Seizures history back pain obesity HTN 06/22/2024: pending stress test 06/23/2024: stress done. pt complains about left breast lump. ordering breast US 06/24/2024: discharged to home breast US is essential normal Condition at Discharge: Fair Final Diagnosis/Problems List see above Discharge Disposition: Home Discharge Instruct/Medications Diet: Cardiac 2g Na,low cholest Activity: No Restrictions, As Tolerated Discharge Statement: "Patient was advised to return to the ER or call 911 if any headaches, dizziness, shortness of breath, chest pain, abdominal pain, bleeding, fevers, or worsening of medical condition. Patient was counseled about treatment plan, medications, possible side effects, patientverbalized understanding. All questions were answered to the best of my ability. This discharge took greater then 30 minutes in planning, reviewing documentation, counseling the patient, and discussing with other team members." ASSESSMENT ASSESSMENT Assessment Date of Service: Jun 24, 2024 Billing Provider: JERRICA SERRANO DO Common Visit Codes: [id number]/[id number] DISCH DAY >30min JERRICA SERRANO DO Jun 24, 2024 14:12
[2024-06-24 14:51] VITALS: BP 110/66; PULSE 64; RESP 18; TEMP 97.6; O2SAT 97
== END 2024-06-24 15:34 | disposition home or self-care (01) | DRG 392 ==
LOC: ER 08:51 → OVERFLOW 10:52 → TELE-EAST 21:45
PROVIDERS: ADMIT Nurse Practitioner Family; ATTEND Internal Medicine
DX: K57.30 Diverticulosis of large intestine without perforation or abscess without bleeding (principal); I24.9 Acute ischemic heart disease, unspecified; G40.909 Epilepsy, unspecified, not intractable, without status epilepticus; E66.9 Obesity, unspecified; E78.5 Hyperlipidemia, unspecified; I10 Essential (primary) hypertension; I49.3 Ventricular premature depolarization; Z82.49 Family history of ischemic heart disease and other diseases of the circulatory system; Z85.51 Personal history of malignant neoplasm of bladder; Z79.899 Other long term (current) drug therapy; Z68.36 Body mass index [BMI] 36.0-36.9, adult
CPT/HCPCS: 36415; 71046; 74176; 76642; 78452; 80048; 80053; 80061; 80307; 81001; 83036; 84443; 84484; 85025; 93005; 93017; 93306; 99291; G0378; J2405